=== PATIENT | female | born 1965 | race Caucasian/White ===

== ENCOUNTER 2017-06-26 21:32 | Inpatient (IN) | payer BC, OTHER ==
[~2017-06-26] VITALS: Ht 161.3 cm; Wt 76.3 kg
[~2017-06-26 21:32] MED LIST: Z.0.NO CURRENT MEDS
[2017-06-26 21:40] VITALS: BP 163/77; PULSE 116; RESP 18; TEMP 98.6; O2SAT 97
[2017-06-26 22:16] VITALS: BP 128/80; PULSE 108; RESP 18; O2SAT 97
[2017-06-26] MEDS ORDERED: SODIUM CHLOR 0.9% 1000 ML INJ 1,000 ML IV SCH (22:28)
[2017-06-26] MEDS ORDERED: SODIUM CHLORIDE 0.9% FLUSH 10 ML FLUSH IV FLUSH PRN (22:30)
--- NOTE | 2017-06-26 22:33 | PD ---
HPI Chief Complaint: GI Complaint Time Seen by Provider: 22:28 Travel History International Travel<30 days: No Contact w/Intl Traveler<30days: No Traveled to known affect area: No History of Present Illness HPI Patient states symptoms began this morning at 5 AM. Patient is uncertain of any dietary indiscretion well water ingestion or foreign travel but did eat pizza with mushrooms last evening that no one else ate does not know if the mushrooms may have been the culprit. Patient denies fever chills. There is been no nausea or vomiting. Patient denies anorexia. Patient describes abdominal pain as crampy in nature. Patient states she was using an antidiarrheal medication today but this evening cramping recurred and decided to come to the emergency room as stool had become frankly bloody. No clots. Patient has had endoscopy and colonoscopy in the past denies history of diverticulosis diverticulitis colitis or inflammatory bowel disease. Patient rates discomfort 6/10 intensity. Patient is able to identify exacerbating or alleviating factors. PFSH Past Medical History Narrative Medical Hypertension dyslipidemia hiatal hernia endoscopy and colonoscopy ankle surgery carpal tunnel release; no tobacco use; nursing notes reviewed High Cholesterol: Yes Diminished Hearing: No GERD: Yes Hiatal Hernia: Yes Hypertension: Yes Medical other: Yes (Left hand carpel tunnel ) Tetanus Vaccination: < 5 Years Influenza Vaccination: No ?: Not Menopausal: Yes Social History Alcohol Use: No (Occasionally) Tobacco Use: No Substance Use: No Allergies-Medications (Allergen,Severity, Reaction): Coded Allergies: No Known Allergies (Verified , 06/26/17) Reported Meds & Prescriptions Reported Meds & Active Scripts Active Reported Amlodipine (Amlodipine Besylate) 5 Mg Tab 5 Mg PO DAILY Co Q 10 (Coenzyme Q10 (Ubidecarenone)) 60 Mg Cap Niacin (Niacinamide) 500 Mg Tablet DAILY Niacin (Niacinamide) 500 Mg Tablet DAILY Hydrochlorothiazide 12.5 Mg Cap 12.5 Mg PO BID Potassium (Potassium Gluconate) 600 Mg Tablet 100 Mg DAILY Atorvastatin (Atorvastatin Calcium) 20 Mg Tab 20 Mg PO HS Omeprazole 20 Mg Tab 20 Mg PO DAILY Narrative Medication Losartan amlodipine Review of Systems Except as stated in HPI: all other systems reviewed are Neg General / Constitutional: No: Fever, Chills HENT: No: Congestion Cardiovascular: No: Chest Pain or Discomfort Respiratory: No: Shortness of Breath Gastrointestinal: Positive: Diarrhea, Abdominal Pain, Hematochezia, No: Nausea , Vomiting, Loss of Appetite Genitourinary: No: Dysuria, Flank Pain Musculoskeletal: No: Myalgias, Arthralgias Skin: No Rash Neurologic: No: Weakness Psychiatric: No: Anxiety Hematologic/Lymphatic: No: Lymph Node Enlargement Physical Exam Narrative GENERAL: Well-developed well-nourished female in no acute distress no respiratory distress SKIN: Warm and dry. HEAD: Normocephalic. EYES: No scleral icterus. No injection or drainage. NECK: Supple, trachea midline. No JVD or lymphadenopathy. CARDIOVASCULAR: Increased Regular rate and rhythm without murmurs, gallops, or rubs. RESPIRATORY: Breath sounds equal bilaterally. No accessory muscle use. GASTROINTESTINAL: Abdomen soft, mildly diffusely tender without guarding or rebound, nondistended. MUSCULOSKELETAL: No cyanosis, or edema. BACK: Nontender without obvious deformity. No CVA tenderness. Data Data Last Documented VS Vital Signs Date Time Temp Pulse Resp B/P Pulse Ox O2 Delivery O2 Flow Rate FiO2 06/26/17 23:51 97.5 105 18 162/94 99 Room Air Orders Complete Blood Count With Diff (06/26/17 22:28) Comprehensive Metabolic Panel (06/26/17 22:28) Lipase (06/26/17 22:28) Lactic Acid (06/26/17 22:28) Urinalysis - C+S If Indicated (06/26/17 22:28) Ct Abd/Pel W Iv Contrast(Rout) (06/26/17 22:28) Iv Access Insert/Monitor (06/26/17 22:28) Ecg Monitoring (06/26/17 22:28) Oximetry (06/26/17 22:28) Sodium Chlor 0.9% 1000 Ml Inj (Ns 1000 M (06/26/17 22:28) Sodium Chloride 0.9% Flush (Ns Flush) (06/26/17 22:30) Iohexol 350 Inj (Omnipaque 350 Inj) (06/26/17 23:48) Sodium Chlor 0.9% 1000 Ml Inj (Ns 1000 M (06/27/17 00:30) Blood Culture (06/27/17 00:18) Metronidazole 500 Mg Inj (Flagyl 500 Mg (06/27/17 00:30) Labs Laboratory Tests Test 06/26/17 06/26/17 06/26/17 22:30 22:40 23:45 White Blood Count 14.4 TH/MM3 Red Blood Count 4.15 MIL/MM3 Hemoglobin 13.2 GM/DL Hematocrit 38.0 % Mean Corpuscular Volume 91.6 FL Mean Corpuscular Hemoglobin 31.8 PG Mean Corpuscular Hemoglobin 34.7 % Concent Red Cell Distribution Width 12.5 % Platelet Count 251 TH/MM3 Mean Platelet Volume 8.7 FL Neutrophils (%) (Auto) 85.1 % Lymphocytes (%) (Auto) 8.7 % Monocytes (%) (Auto) 5.4 % Eosinophils (%) (Auto) 0.5 % Basophils (%) (Auto) 0.3 % Neutrophils # (Auto) 12.2 TH/MM3 Lymphocytes # (Auto) 1.3 TH/MM3 Monocytes # (Auto) 0.8 TH/MM3 Eosinophils # (Auto) 0.1 TH/MM3 Basophils # (Auto) 0.0 TH/MM3 CBC Comment DIFF FINAL Differential Comment Sodium Level 139 MEQ/L Potassium Level 3.3 MEQ/L Chloride Level 105 MEQ/L Carbon Dioxide Level 24.3 MEQ/L Anion Gap 10 MEQ/L Blood Urea Nitrogen 13 MG/DL Creatinine 0.72 MG/DL Estimat Glomerular Filtration 85 ML/MIN Rate Random Glucose 149 MG/DL Calcium Level 8.8 MG/DL Total Bilirubin 0.9 MG/DL Aspartate Amino Transf 22 U/L (AST/SGOT) Alanine Aminotransferase 34 U/L (ALT/SGPT) Alkaline Phosphatase 88 U/L Total Protein 7.2 GM/DL Albumin 3.8 GM/DL Lipase 136 U/L Lactic Acid Level 1.6 mmol/L Urine Color YELLOW Urine Turbidity CLEAR Urine pH 6.0 Urine Specific [place] 1.015 Urine Protein NEG mg/dL Urine Glucose (UA) NEG mg/dL Urine Ketones NEG mg/dL Urine Occult Blood NEG Urine Nitrite NEG Urine Bilirubin NEG Urine Leukocyte Esterase NEG Urine WBC 0-2 /hpf Urine Squamous Epithelial 0-5 /hpf Cells Microscopic Urinalysis Comment CULT NOT INDICATED MDM Medical Decision Making Medical Screen Exam Complete: Yes Emergency Medical Condition: Yes Medical Record Reviewed: Yes Interpretation(s) lactic acid: 1.6 Last Impressions Abdomen/Pelvis CT 06/26/172227 Signed Impressions: Service Date/Time: Monday, June 26, 2017 23:33 - CONCLUSION: 1. Abnormal appearance to the left colon from splenic flexure to distal descending colon with diffuse wall thickening and mild pericolonic fatty induration. Suggest either ischemia or colitis. 2. Prominence of the right ureter without evidence of stone and without evidence of hydronephrosis. 3. 3.2 cm lower uterine hypodense lesion, possibly representing a noncalcified fibroid. Young Garcia MD CBC & BMP Diagram 06/26/17 22:30 Vital Signs Date Time Temp Pulse Resp B/P Pulse Ox O2 Delivery O2 Flow Rate FiO2 06/26/17 23:51 97.5 105 18 162/94 99 Room Air 06/26/17 22:16 108 18 128/80 97 Room Air 06/26/17 21:40 98.6 116 18 163/77 97 Differential Diagnosis Colitis diverticulitis bowel syndrome foodborne illness anemia dehydration sirs sepsis Narrative Course IV access obtained specimens collected and sent for resulting patient administered 1 L normal saline and CT abdomen and pelvis ordered Sepsis Criteria SIRS Criteria (2 or more): Heart rate over 90, WBC > 87949, < 4000 or > 10% bands Sepsis Criteria (SIRS+source): Infect source susp/known (colitis) Physician Communication Physician Communication call placed to [facility] service Diagnosis Primary Impression: Colitis, acute Additional Impression: Sepsis Qualified Code: A41.9 - Sepsis, due to unspecified organism Admitting Information Admitting Physician Requests: Observation Neris Mills MD Jun 26, 2017 22:33
[2017-06-26] MEDS ORDERED: HYDR12.57 PO (22:49)
[2017-06-26] MEDS ORDERED: ATOR20TA15 PO (22:49)
[2017-06-26] MEDS ORDERED: POTA-255 (22:49)
[2017-06-26] MEDS ORDERED: CO Q60CA (22:49)
[2017-06-26] MEDS ORDERED: AMLO5TAB2 PO (22:49)
[2017-06-26] MEDS ORDERED: OMEP20TA PO (22:49)
[2017-06-26] MEDS ORDERED: NIAC500T67 ×2 (22:49)
[2017-06-26 22:54] LABS: AUTOMATED NEUTROPHIL # 12.2 TH/MM3 (1.8-7.7); BASOPHIL % 0.3 % (0.0-2.0); EOSINOPHIL # 0.1 TH/MM3 (0-0.4); EOSINOPHIL % 0.5 % (0.0-4.0); LYMPH % 8.7 % (9.0-44.0); LYMPHOCYTE # 1.3 TH/MM3 (1.0-4.8); MEAN CELL VOLUME 91.6 FL (80.0-100.0); MEAN CORPUSCULAR HEMOGLOBIN 31.8 PG (27.0-34.0); MEAN CORPUSCULAR HGB CONC 34.7 % (32.0-36.0); MONO % 5.4 % (0.0-8.0); NEUT % 85.1 % (16.0-70.0); PLATELET COUNT 251 TH/MM3 (150-450); RED BLOOD COUNT 4.15 MIL/MM3 (4.00-5.30); RED CELL DISTRIBUTION WIDTH 12.5 % (11.6-17.2); WHITE BLOOD COUNT 14.4 TH/MM3 (4.0-11.0)
[2017-06-26 23:08] LABS: CHLORIDE 105 MEQ/L (98-107); POTASSIUM 3.3 MEQ/L (3.5-5.1); SODIUM (NA) 139 MEQ/L (136-145)
[2017-06-26 23:13] LABS: ANION GAP 10 MEQ/L (5-15); BICARBONATE 24.3 MEQ/L (21.0-32.0); BLOOD UREA NITROGEN 13 MG/DL (7-18)
[2017-06-26 23:16] LABS: ALT (GPT) 34 U/L (10-53); AST (GOT) 22 U/L (15-37); GLOMERULAR FILTRATION RATE 85 ML/MIN (>89)
[2017-06-26 23:17] LABS: TOTAL BILIRUBIN ADULT 0.9 MG/DL (0.2-1.0)
[2017-06-26 23:18] LABS: HEMO FLAGS DIFF FINAL
[2017-06-26 23:19] LABS: ALKALINE PHOSPHATASE 88 U/L (45-117)
[2017-06-26] MEDS ORDERED: IOHEXOL 350 MG/ML 10 ML VIAL (for RAD DIAG) IV ONE (23:48)
[2017-06-26 23:51] VITALS: BP 162/94; PULSE 105; RESP 18; TEMP 97.5; O2SAT 99
[2017-06-27] VITALS (11 sets, daily range): BP systolic 132–166; BP diastolic 82–93; PULSE 99–113; RESP 16–20; TEMP 98.4–99.6; O2SAT 95–98
--- NOTE | 2017-06-27 00:07 | RADRPT ---
EXAM DATE/TIME: 06/26/2017 23:33 [facility] COMPARISON: No previous studies available for comparison. INDICATIONS : Abdominal cramping. Bloody stool. IV CONTRAST: 100 cc Omnipaque 350 (iohexol) IV ORAL CONTRAST: No oral contrast ingested. RADIATION DOSE: 12.52 CTDIvol (mGy) MEDICAL HISTORY : Hypertension. Hernia, hiatal. Gastroesophageal reflux disease. SURGICAL HISTORY : None. ENCOUNTER: Initial ACUITY: 1 day PAIN SCALE: 7/10 LOCATION: Bilateral upper quadrant lower quadrant. TECHNIQUE: Volumetric scanning of the abdomen and pelvis was performed. Using automated exposure control and ad justment of the mA and/or kV according to patient size, radiation dose was kept as low as reasonably achievable to obtain optimal diagnostic quality images. DICOM format image data is available electro nically for review and comparison. FINDINGS: LOWER LUNGS: The visualized lower lungs are clear. LIVER: Homogeneous density without lesion. There is no dilation of the biliary tree. No calcified gallston es. SPLEEN: Normal size without lesion. PANCREAS: Within normal limits. KIDNEYS: Normal in size and shape. There is no mass, stone or hydronephrosis. The right ureter is mildly pro minent throughout its entire course; no calcified stones seen. ADRENAL GLANDS: Within normal limits. VASCULAR: There is no aortic aneurysm. BOWEL/MESENTERY: No dilated loops of small large bowel. Abnormal appearance to the left colon from the splenic flexur e to the distal one third of the descending colon characterized by concentric and diffuse wall thicke florentino, measuring up to 1 cm in thickness. The involved segment measures in excess of 15 cm in length. There is also some mild induration of the fat surrounding the descending colon. No evidence of domenica e fluid. There are a few scattered diverticula in the proximal sigmoid colon. ABDOMINAL WALL: Within normal limits. RETROPERITONEUM: There is no lymphadenopathy. BLADDER: No wall thickening or mass. REPRODUCTIVE: 3.2 cm oval hypodense lesion in the lower uterine segment with smooth margins. No uterine or adnexal calcifications. No evidence of free fluid in the cul-de-sac. Mild anteversion of the uterus. INGUINAL: There is no lymphadenopathy or hernia. MUSCULOSKELETAL: Within normal limits for patient age. CONCLUSION: 1. Abnormal appearance to the left colon from splenic flexure to distal descending colon with diffuse wall thickening and mild pericolonic fatty induration. Suggest either ischemia or colitis. 2. Prominence of the right ureter without evidence of stone and without evidence of hydronephrosis. 3. 3.2 cm lower uterine hypodense lesion, possibly representing a noncalcified fibroid. Young Garcia MD on June 26, 2017 at 23:58 Board Certified Radiologist. This report was verified electronically.
[2017-06-27 00:17] LABS: BLOOD, URINE NEG (NEG); GLUCOSE,URINE NEG (NEG); KETONE, URINE NEG (NEG); NITRITE,URINE NEG (NEG)
[2017-06-27 00:25] LABS: URINE COLOR YELLOW (YELLW/STRAW)
[2017-06-27 00:26] LABS: COMMENT (UR) CULT NOT INDICATED; CULTURE IF INDICATED CULT NOT INDICATED; SQUAMOUS EPITHELIAL CELL URINE 0-5 /hpf (0-5); WBC, URINE 0-2 /hpf (0-5)
[2017-06-27] MEDS ORDERED: metroNIDAZOLE 500 MG INJ 100 ML IV ONE (00:30)
[2017-06-27] MEDS ORDERED: SODIUM CHLOR 0.9% 1000 ML INJ 1,000 ML IV ONE (00:30)
[2017-06-27] MEDS ORDERED: SODIUM CHLORIDE 0.9% FLUSH 10 ML FLUSH IV FLUSH PRN (01:00)
[2017-06-27] MEDS ORDERED: NALOXONE HCL 0.4 MG/ML AMP IV PRN (01:00)
[2017-06-27] MEDS ORDERED: SODIUM CHLORIDE 0.9% FLUSH 10 ML FLUSH IVF PRN (01:00)
[2017-06-27] MEDS: SODIUM CHLOR 0.9% 1000 ML INJ 1,000 ML IV SCH ×3 (01:28→21:04)
[2017-06-27] MEDS: metroNIDAZOLE 500 MG INJ 100 ML IV SCH ×4 (05:23→23:57)
[2017-06-27] MEDS: CIPROFLOXACIN 500 MG TAB PO SCH ×2 (08:39→21:05)
[2017-06-27 08:41] LABS: BASOPHIL # 0.1 TH/MM3 (0-0.2); BASOPHIL % 0.5 % (0.0-2.0); EOSINOPHIL # 0.1 TH/MM3 (0-0.4); EOSINOPHIL % 0.5 % (0.0-4.0); HEMATOCRIT 38.2 % (35.0-46.0); LYMPH % 9.7 % (9.0-44.0); LYMPHOCYTE # 1.1 TH/MM3 (1.0-4.8); MEAN CELL VOLUME 93.3 FL (80.0-100.0); MEAN CORPUSCULAR HEMOGLOBIN 31.1 PG (27.0-34.0); MEAN CORPUSCULAR HGB CONC 33.4 % (32.0-36.0); MONO % 5.9 % (0.0-8.0); NEUT % 83.4 % (16.0-70.0); PLATELET COUNT 242 TH/MM3 (150-450); RED BLOOD COUNT 4.09 MIL/MM3 (4.00-5.30); RED CELL DISTRIBUTION WIDTH 13.1 % (11.6-17.2); WHITE BLOOD COUNT 10.9 TH/MM3 (4.0-11.0)
[2017-06-27] MEDS: SODIUM CHLORIDE 0.9% FLUSH 10 ML FLUSH IV FLUSH SCH ×2 (08:42→21:00)
[2017-06-27 08:44] LABS: HEMO FLAGS DIFF FINAL
[2017-06-27 08:52] LABS: POTASSIUM 3.2 MEQ/L (3.5-5.1)
[2017-06-27 08:55] LABS: BICARBONATE 25.4 MEQ/L (21.0-32.0); MAGNESIUM 1.9 MG/DL (1.5-2.5)
[2017-06-27] MEDS ORDERED: SODIUM CHLORIDE 0.9% FLUSH 10 ML FLUSH IV FLUSH SCH (09:00)
--- NOTE | 2017-06-27 09:27 | HHI.HP ---
[facility] Service [place] [facility] Primary Care Physician Non-Staff Admission Diagnosis Colitis Diagnoses: (1) Sepsis (2) Colitis, acute Chief Complaint: Diarrhea with blood noted Travel History International Travel<30 Days: No Contact w/Intl Traveler <30 Da: No Traveled to Known Affected Are: No History of Present Illness Written by Elijah Cowan, acting as scribe for Dr. Mckeon on 06/27/17 at 09: 27. 51-year-old female with known history of hypertension, hyperlipidemia , carpal tunnel who presented to the hospital because of diarrhea with blood. Patient states that she is in normal state of health until yesterday morning when she woke up at approximately 5 AM with lower abdominal cramping. She went to the restroom and had an explosive bowel movement, she does not know the consistency at that time. Her pain did get better after the bowel movement. She proceeded to get ready for work and she states that she had 2 more bowel movements that morning and she took antidiarrheal medication. Patient did go to work and did fine throughout the day until she came home from work and at approximately 5:30 when she started developing the cramps in her lower abdomen again. This time she went to the restroom and noticed that she had bright red blood in the toilet and because of that she came to the hospital for evaluation. Patient indicates that the only thing she remembers eating in the previous 24 hours was a pizza in which her family also ate, however her slices had mushrooms. She does not recall what she ate for breakfast or lunch. The patient had workup done in the emergency department and was found to have clinical findings of sepsis with tachycardia, leukocytosis and colitis by CT. Patient indicates that she had upper endoscopy and colonoscopy done at age 48 by a doctor in order, however she does not know the doctor's name. At that time she was told that everything was normal. At the present time she is doing rather well. She denies any abdominal pain at this time. She had one bowel movement since being here the hospital and it was still bloody. She is asking for at least ice chips to eat. Review of Systems Gastrointestinal: COMPLAINS OF: Abdominal pain, Bloody stools, Diarrhea Except as stated in HPI: all other systems reviewed are Neg Past Family Social History Past Medical History Hypertension Hyperlipidemia Left hand carpal tunnel Past Surgical History Upper and lower endoscopy at age 48, however does not know the doctor's name Left ankle surgery Reported Medications Reported Meds & Active Scripts Active Reported Amlodipine (Amlodipine Besylate) 5 Mg Tab 5 Mg PO DAILY Co Q 10 (Coenzyme Q10 (Ubidecarenone)) 60 Mg Cap Niacin (Niacinamide) 500 Mg Tablet DAILY Niacin (Niacinamide) 500 Mg Tablet DAILY Hydrochlorothiazide 12.5 Mg Cap 12.5 Mg PO BID Potassium (Potassium Gluconate) 600 Mg Tablet 100 Mg DAILY Atorvastatin (Atorvastatin Calcium) 20 Mg Tab 20 Mg PO HS Omeprazole 20 Mg Tab 20 Mg PO DAILY Allergies: Coded Allergies: No Known Allergies (Verified , 06/26/17) Family History Reviewed is significant for mother having heart disease with coronary bypass surgery, stenting below age 60. She also has diabetes. Social History Patient does drink 2 beers at least 3 times weekly. Denies any tobacco or illicit drugs Physical Exam Vital Signs Vital Signs Date Time Temp Pulse Resp B/P Pulse Ox O2 Delivery O2 Flow Rate FiO2 06/27/17 08:54 98.9 105 20 146/86 97 06/27/17 08:14 97 21 06/27/17 04:50 97 21 06/27/17 04:00 99.6 108 18 151/82 98 06/27/17 02:30 99.6 103 20 132/93 97 06/27/17 02:21 107 18 97 06/27/17 02:19 107 18 166/84 97 Room Air 06/27/17 00:56 113 18 165/88 97 Room Air 06/26/17 23:51 97.5 105 18 162/94 99 Room Air 06/26/17 22:16 108 18 128/80 97 Room Air 06/26/17 21:40 98.6 116 18 163/77 97 Physical Exam GENERAL: Well-developed, well-nourished, in no acute distress. alert and orientated HEENT: Head is normocephalic without any lesions or masses noted. Facial features are symmetric. Eyes: Pupils equal round reactive to light. Extraocular muscles are intact. Conjunctivae were clear. Oropharyngeal: Pharynx without any erythema edema. Tongue is midline without deviation. Buccal mucosa is moist without any masses or lesions NECK: Supple without any masses. Trachea midline no deviation. No JVD, no bruits are appreciated CARDIAC: Regular rhythm, regular rate. S1/S2 are heard. No murmurs gallops or rubs. LUNGS: Clear to auscultation bilaterally. No wheeze, rhonchi or rales. No use of accessory muscles on inspiration or expiration. ABDOMEN: Soft, nontender. Nondistended. Bowel sounds heard in all 4 quadrants. No organomegaly or masses. Negative rebound, negative guarding EXTREMITIES: No edema, pulses are equal bilaterally. No cyanosis or clubbing NEUROLOGY: Mood and affect appear appropriate. Cranial nerves II through XII grossly intact. Muscle strength 5/5 in upper and lower extremities bilaterally. Deep tendon reflexes are 2+ in upper and lower extremities bilaterally. Laboratory Laboratory Tests Test 06/26/17 06/26/17 06/26/17 06/27/17 22:30 22:40 23:45 08:33 White Blood Count 14.4 10.9 Red Blood Count 4.15 4.09 Hemoglobin 13.2 12.7 Hematocrit 38.0 38.2 Mean Corpuscular Volume 91.6 93.3 Mean Corpuscular Hemoglobin 31.8 31.1 Mean Corpuscular Hemoglobin 34.7 33.4 Concent Red Cell Distribution Width 12.5 13.1 Platelet Count 251 242 Mean Platelet Volume 8.7 8.0 Neutrophils (%) (Auto) 85.1 83.4 Lymphocytes (%) (Auto) 8.7 9.7 Monocytes (%) (Auto) 5.4 5.9 Eosinophils (%) (Auto) 0.5 0.5 Basophils (%) (Auto) 0.3 0.5 Neutrophils # (Auto) 12.2 9.0 Lymphocytes # (Auto) 1.3 1.1 Monocytes # (Auto) 0.8 0.6 Eosinophils # (Auto) 0.1 0.1 Basophils # (Auto) 0.0 0.1 CBC Comment DIFF FINAL DIFF FINAL Differential Comment Sodium Level 139 140 Potassium Level 3.3 3.2 Chloride Level 105 108 Carbon Dioxide Level 24.3 25.4 Anion Gap 10 7 Blood Urea Nitrogen 13 7 Creatinine 0.72 0.53 Estimat Glomerular Filtration 85 121 Rate Random Glucose 149 124 Calcium Level 8.8 8.8 Total Bilirubin 0.9 Aspartate Amino Transf 22 (AST/SGOT) Alanine Aminotransferase 34 (ALT/SGPT) Alkaline Phosphatase 88 Total Protein 7.2 Albumin 3.8 Lipase 136 Lactic Acid Level 1.6 Urine Color YELLOW Urine Turbidity CLEAR Urine pH 6.0 Urine Specific [place] 1.015 Urine Protein NEG Urine Glucose (UA) NEG Urine Ketones NEG Urine Occult Blood NEG Urine Nitrite NEG Urine Bilirubin NEG Urine Leukocyte Esterase NEG Urine WBC 0-2 Urine Squamous Epithelial 0-5 Cells Microscopic Urinalysis Comment CULT NOT INDICATED Magnesium Level 1.9 Date/Time Procedure Status Source Growth 06/27/17 08:30 Stool Pus (GALILEO) Received Stool Stool Pending 06/27/17 08:30 Received Stool Stool Pending 06/27/17 00:25 Aerobic Blood Culture Received Blood Peripheral Pending 06/27/17 00:25 Anaerobic Blood Culture Received Blood Peripheral Pending Result Diagram: 06/27/17 0833 06/27/1733 Imaging Last Impressions Abdomen/Pelvis CT 06/26/178 Signed Impressions: Service Date/Time: Monday, June 26, 2017 23:33 - CONCLUSION: 1. Abnormal appearance to the left colon from splenic flexure to distal descending colon with diffuse wall thickening and mild pericolonic fatty induration. Suggest either ischemia or colitis. 2. Prominence of the right ureter without evidence of stone and without evidence of hydronephrosis. 3. 3.2 cm lower uterine hypodense lesion, possibly representing a noncalcified fibroid. Young Garcia MD Septic Shock Reassessment Heart: Regular rate and rhythm Lungs: Clear Skin: Warm, [place] Peripheral Pulses: Bounding Right Radial Bounding Left Radial Capillary Refill: Brisk, <2 seconds Assessment and Plan Problem List: (1) Sepsis ICD Code: A41.9 Status: Acute (2) Colitis, acute ICD Code: K52.9 Status: Acute Assessment and Plan Sepsis Patient met criteria on admission with leukocytosis, tachycardia, colitis by CT Patient started on empirical antibiotics for colitis Blood cultures are pending Colitis with associated diarrhea illness, lower GI bleed Likely infectious process, lactic acid level is normal CT scan shows abnormal appearance of left colon from splenic flexure to distal descending colon with diffuse wall thickening and mild pericolic fatty induration. Check stool for enteric pathogens, WBC Continue Flag Yuriyyl Consult station repairer for further evaluation Monitor hemoglobin/hematocrit, transfuse if hemoglobin below 8.0 Hypertension, hyperlipidemia Continue home medications DVT prevention Sequential compression devices, avoid chemical prophylaxis secondary to GI bleed This note was transcribed by ryan Cowan. I, Dr. Tobias Mckeon personally performed the history, physical exam, and medical decision making; and confirmed the accuracy of the information in the transcribed note. Authenticated by Dr. Tobias Mckeon on 06/27/17 at 09:51. Code Status Full code Discussed Condition With Patient Physician Certification 2 Midnight Certification Type: Admission for Inpatient Services Order for Inpatient Services The services are ordered in accordance with Medicare regulations or non- Medicare payer requirements, as applicable. In the case of services not specified as inpatient-only, they are appropriately provided as inpatient services in accordance with the 2-midnight benchmark. Estimated LOS (days): 2 days is the estimated time the patient will need to remain in the hospital, assuming treatment plan goals are met and no additional complications. Post-Hospital Plan: Not yet determined Problem Qualifiers (1) Sepsis: Qualified Code: A41.9 - Sepsis, due to unspecified organism Elijah Cowan Jun 27, 2017 09:27 Tobias Mckeon MD Jun 27, 2017 09:28
[2017-06-27] MEDS ORDERED: TEMAZEPAM 15 MG CAP PO PRN (14:30)
[2017-06-27] MEDS ORDERED: ACETAMINOPHEN 325 MG TAB PO PRN (14:30)
[2017-06-27] MEDS ORDERED: ONDANSETRON HCL 4 MG/2 ML VIAL IV PRN (14:30)
[2017-06-27] MEDS ORDERED: ENALAPRILAT 2.5 MG/2 ML VIAL IV PUSH PRN (14:45)
--- NOTE | 2017-06-27 16:25 | MB ---
cc: MAGGIE CLINTON M.D., ERIC DATE OF CONSULTATION: June 27, [address] Tobias Mckeon. REASON FOR CONSULTATION Diarrhea, abdominal pain and colitis. HISTORY OF PRESENT ILLNESS Ms. Finn is a 51-year-old lady basically admitted with 1-day history of diarrhea associated with bloody bowel movements and lower abdominal discomfort. She says symptoms started she thinks after eating pizza for dinner the night before. She said that the pizza had slides of mushroom and she thinks that might be the culprit. She denies any previous problems. She has had an EGD, colonoscopy about 3 years ago in [place]. At that time she says polyps were removed. The upper endoscopy was done for dysphagia and her esophagus was stretched at that time. Currently she is not having any issues with her swallowing. REVIEW OF SYSTEMS No abdominal pain. No further bleeding. No diarrhea. No nausea, vomiting. PAST MEDICAL HISTORY 1. Hypertension. 2. Hyperlipidemia. 3. Left hand carpal tunnel syndrome. PAST SURGICAL HISTORY EGD, colonoscopy at 48, left ankle surgery. MEDICATIONS Currently on: 1. Amlodipine. 2. Niacin. 3. Atorvastatin. 4. Omeprazole. 5. Ciprofloxacin. 6. Metronidazole were added in the hospital. ALLERGIES None documented. FAMILY HISTORY Noncontributory. SOCIAL HISTORY The patient drinks beer, no tobacco reported. PHYSICAL EXAMINATION GENERAL: A well-nourished lady in no apparent distress. VITAL SIGNS: Stable. HEAD/NECK: Anicteric sclerae. CHEST: Bilateral air entry with rales. ABDOMEN: Obese, soft, nontender. No hepatosplenomegaly. No guarding or rigidity. BROWN SOURER: Exam is nonfocal. LABORATORY DATA White cell count 10.9, hemoglobin 12.7, creatinine 0.53. IMAGING STUDIES CT abdomen and pelvis reveals left-sided colitis. IMPRESSION Infectious colitis. RECOMMENDATIONS Stool ova and parasite, WBC and stool for C-difficile toxin has been requested. Full liquid diet. The patient has been started on Levaquin and Flagyl at this time. She seems to be improving. She has had no further bleeding. At this time continue this plan, if overnight does well, advance diet tomorrow and discharge home on p.o. antibiotics. If she has any further bleeding or worsening abdominal pain, then a colonoscopy will be planned. This has been discussed with her. MD SHARON Garvey/MICHELLE /3:48 PM /4:13 PM
[2017-06-28] VITALS: BP 126/83; PULSE 88; RESP 16; TEMP 97.2; O2SAT 96
[2017-06-28] MEDS: metroNIDAZOLE 500 MG INJ 100 ML IV SCH (05:19)
[2017-06-28 05:34] LABS: C. DIFF EPI 027 PRESUMPTIVE NEGATIVE (NEGATIVE)
[2017-06-28 05:45] LABS: AUTOMATED NEUTROPHIL # 6.9 TH/MM3 (1.8-7.7); BASOPHIL % 0.2 % (0.0-2.0); EOSINOPHIL # 0.1 TH/MM3 (0-0.4); EOSINOPHIL % 0.8 % (0.0-4.0); HEMATOCRIT 33.5 % (35.0-46.0); HEMO FLAGS DIFF FINAL; LYMPH % 17.4 % (9.0-44.0); LYMPHOCYTE # 1.6 TH/MM3 (1.0-4.8); MEAN CELL VOLUME 91.8 FL (80.0-100.0); MEAN CORPUSCULAR HEMOGLOBIN 32.1 PG (27.0-34.0); MEAN CORPUSCULAR HGB CONC 34.9 % (32.0-36.0); NEUT % 75.6 % (16.0-70.0); PLATELET COUNT 218 TH/MM3 (150-450); RED BLOOD COUNT 3.65 MIL/MM3 (4.00-5.30); RED CELL DISTRIBUTION WIDTH 12.2 % (11.6-17.2); WHITE BLOOD COUNT 9.1 TH/MM3 (4.0-11.0)
[2017-06-28 05:51] LABS: CHLORIDE 110 MEQ/L (98-107); POTASSIUM 3.2 MEQ/L (3.5-5.1); SODIUM (NA) 145 MEQ/L (136-145)
[2017-06-28 06:26] LABS: ALKALINE PHOSPHATASE 75 U/L (45-117); ALT (GPT) 24 U/L (10-53); ANION GAP 7 MEQ/L (5-15); AST (GOT) 16 U/L (15-37); BICARBONATE 27.9 MEQ/L (21.0-32.0); BLOOD UREA NITROGEN 5 MG/DL (7-18); GLOMERULAR FILTRATION RATE 135 ML/MIN (>89); TOTAL BILIRUBIN ADULT 0.9 MG/DL (0.2-1.0)
[2017-06-28 08:00] VITALS: BP 141/92; PULSE 89; RESP 24; TEMP 97.2; O2SAT 98
[2017-06-28] MEDS: SODIUM CHLOR 0.9% 1000 ML INJ 1,000 ML IV SCH (08:43)
[2017-06-28] MEDS: CIPROFLOXACIN 500 MG TAB PO SCH (08:43)
[2017-06-28] MEDS: SODIUM CHLORIDE 0.9% FLUSH 10 ML FLUSH IV FLUSH SCH (08:44)
[2017-06-28] MEDS ORDERED: PANTOPRAZOLE SOD 40 MG DELAYED RELEASE TAB PO SCH (09:00)
--- NOTE | 2017-06-28 09:48 | HHI.PR ---
Subjective Remarks Follow-up infectious colitis 06/28/17-patient seen and examined, reports significant improvement of abdominal pain. No nausea or vomiting with by mouth intake. No significant bleeding Objective Vitals Vital Signs Date Time Temp Pulse Resp B/P Pulse Ox O2 Delivery O2 Flow Rate FiO2 06/28/17 08:00 97.2 89 24 141/92 98 06/28/17 00:00 97.2 88 16 126/83 96 06/27/17 20:00 98.8 99 16 143/92 97 06/27/17 19:45 95 21 06/27/17 17:22 98.4 104 18 154/93 95 06/27/17 14:16 98.6 103 16 151/91 95 I/O 06/27/17 06/27/17 06/27/17 06/28/17 06/28/17 06/28/17 06:59 14:59 22:59 06:59 14:59 22:59 Intake Total 1300 ml 2032 ml 959 ml Output Total 15 ml Balance 1285 ml 2032 ml 959 ml Intake Oral 0 ml 420 ml IV Total 1300 ml 2032 ml 539 ml Output Urine Total 15 ml # Voids 5 3 2 # Bowel Movements 1 1 Result Diagram: 06/28/17 0430 06/28/17 0430 Imaging Last Impressions Abdomen/Pelvis CT 06/26/172227 Signed Impressions: Service Date/Time: Monday, June 26, 2017 23:33 - CONCLUSION: 1. Abnormal appearance to the left colon from splenic flexure to distal descending colon with diffuse wall thickening and mild pericolonic fatty induration. Suggest either ischemia or colitis. 2. Prominence of the right ureter without evidence of stone and without evidence of hydronephrosis. 3. 3.2 cm lower uterine hypodense lesion, possibly representing a noncalcified fibroid. Young Garcia MD Objective Remarks GENERAL: NAD SKIN: Warm and dry. HEAD: Normocephalic. EYES: No scleral icterus. No injection or drainage. NECK: Supple, trachea midline. No JVD or lymphadenopathy. CARDIOVASCULAR: Regular rate and rhythm without murmurs, gallops, or rubs. RESPIRATORY: Breath sounds equal bilaterally. No accessory muscle use. GASTROINTESTINAL: Abdomen soft, non-tender, nondistended. MUSCULOSKELETAL: No cyanosis, or edema. BACK: Nontender without obvious deformity. No CVA tenderness. A/P Problem List: (1) Sepsis ICD Code: A41.9 Status: Acute (2) Colitis, acute ICD Code: K52.9 Status: Acute Assessment and Plan 51-year-old female with Sepsis-resolved Patient met criteria on admission with leukocytosis, tachycardia, colitis by CT Continue empirical antibiotics for colitis Blood cultures are pending Infectious Colitis with associated diarrhea illness, lower GI bleed Likely infectious process, lactic acid level is normal CT scan shows abnormal appearance of left colon from splenic flexure to distal descending colon with diffuse wall thickening and mild pericolic fatty induration. stool for enteric pathogens, C. difficile PCR negative Continue Cipro, Flagyl Appreciate input from ground intelligence officer Monitor hemoglobin/hematocrit, transfuse if hemoglobin below 8.0 Hypertension, hyperlipidemia Continue home medications DVT prevention Sequential compression devices, avoid chemical prophylaxis secondary to GI bleed Patient condition tremendously improved, she'll be discharged home Discharge Planning Discharge patient to home Condition on discharge: Improved Regular Diet as tolerated Ad Charito activity Rx written: Cipro 500 mg by mouth twice a day 7 days, Flagyl 500 mg 3 times a day him 7 days Follow-up with primary care physician in one week Gastroenterology and 1-2 weeks Problem Qualifiers (1) Sepsis: Qualified Code: A41.9 - Sepsis, due to unspecified organism Tobias Mckeon MD Jun 28, 2017 09:48
[2017-06-28] MEDS ORDERED: CIPR-9 PO (09:50)
[2017-06-28] MEDS ORDERED: METR-1 PO (09:50)
[2017-06-28] MEDS ORDERED: LACTCHW3 CHEW (09:50)
== END 2017-06-28 10:39 | disposition home or self-care (01) | DRG 872 ==
LOC: PHED 21:32 → PHEDA 06-27 01:00 → PH3A 06-27 02:14 → OBSVTOIN 06-27 09:49 → PH3A 06-28 08:07
PROVIDERS: ADMIT Hospitalist; ATTEND Hospitalist
DX: A41.9 Sepsis, unspecified organism (principal); K52.9 Noninfective gastroenteritis and colitis, unspecified; I10 Essential (primary) hypertension; E78.5 Hyperlipidemia, unspecified
CPT/HCPCS: 74177; 80048; 80053; 81001; 83605; 83690; 83735; 85025; 87040; 87205; 87493; 87506; 96365; J7030; Q9967